=== PATIENT | female | born 1965 | race African-American/Black ===

== ENCOUNTER 2019-08-10 12:00 | Emergency (ER) | payer BC ==
[~2019-08-10] VITALS: Ht 165.1 cm; Wt 77.1 kg
[~2019-08-10 12:00] MED LIST: AZEL30SP2; MUPI22OI
--- NOTE | 2019-08-10 12:23 | NUR ---
CAME IN FOR "Dizziness/head feels fuzzy started yesterday on/off. Not getting better". TO ER BED 12, HOOKED TO MONITOR, CHANGED TO GOWN, AWAITING MD JAIMES.
--- NOTE | 2019-08-10 12:50 | NUR ---
DR RINCON AT BEDSIDE
[2019-08-10] MEDS ORDERED: IV NS 0.9% 1,000 ML BAG IV ONE (13:00)
[2019-08-10 13:10] LABS: BASOPHILS % (AUTO) 0.7 % (0.0-2.0); EOSINOPHILS % (AUTO) 3.2 % (0.0-6.0); HEMATOCRIT 39 % (33-45); HEMOGLOBIN 13.1 g/dL (11.5-14.8); LYMPHOCYTES # (AUTO) 2.2 /CMM (0.8-4.8); LYMPHOCYTES % (AUTO) 39.1 % (20.0-44.0); MEAN CORPUSCULAR HGB CONC 33 g/dl (31.0-36.0); MEAN CORPUSCULAR VOLUME 95 fL (82-100); MONOCYTES # (AUTO) 0.4 /CMM (0.1-1.30); MONOCYTES % (AUTO) 6.4 % (2.0-12.0); NEUTROPHILS # (AUTO) 2.8 /CMM (1.8-8.9); NEUTROPHILS % (AUTO) 50.6 % (43.0-81.0); PLATELET COUNT (AUTO) 291 /CMM (150-450); RED BLOOD CELL COUNT(AUTO) 4.16 MIL/uL (4.0-5.2); WHITE BLOOD COUNT (AUTO) 5.6 K/uL (4.3-11.0)
[2019-08-10 13:18] LABS: APPEARANCE,URINE Clear (CLEAR); BILIRUBIN,URINE Negative (NEGATIVE); BLOOD, URINE Negative Ery/uL (NEGATIVE); COLOR,URINE Yellow (YELLOW); KETONES,URINE Negative (NEGATIVE); LEUKOCYTE ESTERASE ,URINE Moderate (NEGATIVE); NITRITE, URINE Negative (NEGATIVE); PH,URINE 7.5 (5.0-8.0); PROTEIN,URINE Negative (NEGATIVE); UGLUCOSE Negative (NEGATIVE); UROBILINOGEN,URINE 0.2 EU/dL (0.2)
[2019-08-10 13:27] LABS: CALCIUM, SERUM 9.2 mg/dL (8.5-10.1); CARBON DIOXIDE 27 mmol/L (21-32); CHLORIDE 106 mmol/L (98-107); GLUCOSE 102 mg/dL (74-106); POTASSIUM 3.6 mmol/L (3.5-5.1); SODIUM SERUM 141 mmol/L (136-145); UREA NITROGEN, BLOOD 10 mg/dL (7-18)
[2019-08-10 13:35] LABS: BACTERIA,URINE 2+ /HPF (None Seen); RBC,URINE NONE SEEN /HPF (0-2); SQUAMOUS EPITHELIAL CELL,UR Few /HPF (None Seen)
--- NOTE | 2019-08-10 14:32 | NUR ---
IV removed. Catheter intact and site benign. Pressure and 4x4 applied to site. No bleeding noted.Patient discharged to home in stable condition. Written and verbal after care instructions given. Patient verbalizes understanding of instruction.
[2019-08-10 14:48] VITALS: BP 139/84
== END 2019-08-10 14:35 | disposition home or self-care (01) ==
LOC: ER 12:00
DX: N39.0 Urinary tract infection, site not specified (principal); R42 Dizziness and giddiness
CPT/HCPCS: 36415; 80048; 81001; 84484; 85025; 87086; 93005; 96360; 99284; J7030; 81000-TC

== ENCOUNTER 2023-02-18 11:23 | Emergency (ER) | payer BC ==
[~2023-02-18] VITALS: Ht 165.1 cm; Wt 78.0 kg
--- NOTE | 2023-02-18 11:47 | NUR ---
Patient AOx4 able to express her own concerns. Patient states she feels good other joey some pain on her left wrist. Discussed plan of care, patient verbalized agreement. All safety precautions taken.
[2023-02-18] MEDS ORDERED: KETOROLAC TROMETHAMINE INJ 30 MG/ML VIAL IM ONE (12:00)
[2023-02-18] MEDS ORDERED: KETOROLAC TROMETHAMINE INJ 30 MG/ML VIAL ONE (12:01)
[2023-02-18] MEDS ORDERED: KETO10TA2 PO (13:30)
[2023-02-18] MEDS ORDERED: HYDR-4209 PO (13:30)
--- NOTE | 2023-02-18 13:42 | NUR ---
EMT AT BEDSIDE FOR SPLINT APPLICATION.
--- NOTE | 2023-02-18 13:51 | NUR ---
Patient discharged to home in stable condition. Written and verbal after care instructions given. Patient verbalizes understanding of instruction.
[2023-02-18 13:53] VITALS: BP 138/78
== END 2023-02-18 13:54 | disposition home or self-care (01) ==
LOC: ER 11:29
DX: S52.532A Colles' fracture of left radius, initial encounter for closed fracture (principal); W01.0XXA Fall on same level from slipping, tripping and stumbling without subsequent striking against object, initial encounter; Y93.89 Activity, other specified; Y92.830 Public park as the place of occurrence of the external cause; Y99.8 Other external cause status
CPT/HCPCS: 99283; 29125; 96372; 73110; J1885

== ENCOUNTER 2025-06-18 19:02 | Emergency (ER) | payer BC ==
[~2025-06-18] VITALS: Ht 165.1 cm; Wt 81.6 kg
[~2025-06-18 19:02] MED LIST changes: +HYDR-4209 PO; +KETO10TA2 PO
[2025-06-18 19:53] VITALS: TEMP 98.3
[2025-06-18] MEDS ORDERED: LIDOCAINE 5% (PATCH) 1 EA PATCH TP ONE (20:14)
[2025-06-18] MEDS ORDERED: ACETAMINOPHEN 325 MG TABLET ONE (20:14)
[2025-06-18] MEDS: ACETAMINOPHEN 325 MG TABLET PO ONE (20:19)
[2025-06-18] MEDS: LIDOCAINE 5% (PATCH) 1 EA PATCH TP SCH (20:19)
[2025-06-18] MEDS ORDERED: LIDO30AD10 TP (20:35)
[2025-06-18 20:46] VITALS: BP 135/80; O2SAT 98
== END 2025-06-18 20:45 | disposition home or self-care (01) ==
LOC: ER 19:18
DX: M54.42 Lumbago with sciatica, left side (principal)

== ENCOUNTER 2025-11-10 07:21 | Emergency (ER) | payer BC ==
[~2025-11-10] VITALS: Ht 165.1 cm; Wt 86.2 kg
[~2025-11-10 07:21] MED LIST changes: +LIDO30AD10 TP
[2025-11-10 07:41] VITALS: BP 149/97; TEMP 97.9
[2025-11-10 08:13] VITALS: O2SAT 97
== END 2025-11-10 08:14 | disposition home or self-care (01) ==
LOC: ER 07:25
DX: I10 Essential (primary) hypertension (principal); G89.29 Other chronic pain